=== PATIENT | male | born 1950 | race Caucasian/White ===

== ENCOUNTER 2016-10-07 09:56 | Emergency (ER) | payer MEDICARE ==
[~2016-10-07] VITALS: Ht 177.8 cm; Wt 100.0 kg
[2016-10-07] MEDS ORDERED: METFORMIN500 MG PO (10:06)
[2016-10-07] MEDS ORDERED: LISINOPRIL30 MG PO (10:06)
[2016-10-07] MEDS ORDERED: CEPHALEXIN500 MG PO (10:52)
[2016-10-07 11:14] VITALS: BP 176/85
== END 2016-10-07 11:23 | disposition home or self-care (01) ==
LOC: ED 09:56
PROC: 0HQGXZZ Repair Left Hand Skin, External Approach (ICD-10-PCS; principal; 2016-10-07)
DX: S61.412A Laceration without foreign body of left hand, initial encounter (principal); W55.29XA Other contact with cow, initial encounter; Y93.K9 Activity, other involving animal care; Y92.018 Other place in single-family (private) house as the place of occurrence of the external cause